=== PATIENT | female | born 1980 | race Native Hawaiian/Other Pacific Islander ===

== ENCOUNTER 2018-05-03 12:49 | Emergency (ER) | payer MEDICAID ==
[2018-05-03 13:02] VITALS: BP 150/96
[2018-05-03 13:29] LABS: Hematocrit 38.5 % (30.3-42.9); Hemoglobin 13.1 gm/dl (10.1-14.3); Mean Corpuscular HGB Conc 34 % (30-34); Mean Corpuscular Hemoglobin 32 pg (28-32); Mean Corpuscular Volume 93 fl (79-97); Platelet Count 254 K/mm3 (140-440); Red Blood Count 4.13 M/mm3 (3.65-5.03); Red Cell Distribution Width 13.4 % (13.2-15.2)
[2018-05-03 13:38] LABS: Bilirubin,Urine NEG (Negative); Blood,Urine NEG (Negative); Color,Urine Amber (Yellow); HCG Qualitative,Urine Negative (Negative); Mucus,Urine 3+ /HPF
[2018-05-03] MEDS ORDERED: DULCOLAX PR ONE (13:39)
[2018-05-03 13:46] LABS: BUN/Creatinine Ratio 13; Blood Urea Nitrogen 8 mg/dL (7-17); Calcium 9.1 mg/dL (8.4-10.2); Hemolysis Index 2
[2018-05-03] MEDS ORDERED: CITRATE OF MAGNESIA PO ONE (14:18)
--- NOTE | 2018-05-03 14:25 | XRay Report ---
ABDOMEN, 2 views: History: Abdominal pain, constipation. There is no evidence of free air beneath the diaphragms. The gas pattern within the abdomen is unremarkable. There is no evidence of bowel dilatation, significant air-fluid levels, or pathologic calcifications. Organ shadows are unremarkable. IMPRESSION: Unremarkable abdomen.
--- NOTE | 2018-05-03 14:34 | Emergency Department Report ---
ED Abdominal Pain HPI - General Chief Complaint: Abdominal Pain Stated Complaint: LOWER STOMACH PAIN Time Seen by Provider: 05/03/18 13:30 Source: patient Mode of arrival: Ambulatory Limitations: No Limitations - History of Present Illness MD Complaint: abdominal pain -: Gradual, week(s) Location: diffuse Radiation: none Severity: moderate Improves With: nothing Worsens With: nothing Associated Symptoms: constipation. denies: nausea, vomiting, diarrhea, fever, chills, dysuria, hematemesis, hematochezia, melena, hematuria, anorexia, syncope Treatments Prior to Arrival: other (no meds) - Related Data LMP (females 10-50): 1 month Previous Rx's Medication Instructions Recorded Last Taken Type PE/Shk Lvr/Mo/Pet,Wh [Preparation 28 gm MO DAILY #1 tube 05/03/18 Unknown Rx H] Polyethylene Glycol 3350 [Miralax 17 gm PO QDAY #30 packet 05/03/18 Unknown Rx 3350] Allergies Allergy/AdvReac Type Severity Reaction Status Date / Time No Known Allergies Allergy Unverified 05/03/18 13:01 ED Review of Systems ROS: Stated complaint: LOWER STOMACH PAIN Other details as noted in HPI Comment: All other systems reviewed and negative Constitutional: no symptoms reported. denies: chills, fever Eyes: denies: eye pain ENT: denies: ear pain Respiratory: no symptoms reported. denies: cough Cardiovascular: denies: chest pain Endocrine: no symptoms reported Gastrointestinal: abdominal pain, constipation. denies: nausea, vomiting, diarrhea, hematemesis, melena, hematochezia Genitourinary: denies: urgency, dysuria Musculoskeletal: denies: back pain Skin: denies: rash, lesions Neurological: denies: headache, weakness Psychiatric: denies: anxiety, depression Hematological/Lymphatic: denies: easy bleeding ED Past Medical Hx - Past Medical History Additional medical history: OBESITY - Surgical History Hx Cholecystectomy: Yes Additional Surgical History: TUBILIGATION - Family History Family history: no significant - Social History Smoking Status: Current Some Day Smoker Substance Use Type: Alcohol - Medications Home Medications: Home Medications Medication Instructions Recorded Confirmed Last Taken Type PE/Shk Lvr/Mo/Pet,Wh [Preparation 28 gm MO DAILY #1 tube 05/03/18 Unknown Rx H] Polyethylene Glycol 3350 [Miralax 17 gm PO QDAY #30 packet 05/03/18 Unknown Rx 3350] ED Physical Exam - General Limitations: No Limitations General appearance: alert, in no apparent distress - Head Head exam: Present: normocephalic - Eye Eye exam: Present: PERRL - ENT ENT exam: Present: normal exam, mucous membranes moist - Neck Neck exam: Present: normal inspection - Respiratory Respiratory exam: Present: normal lung sounds bilaterally - Cardiovascular Cardiovascular Exam: Present: regular rate - GI/Abdominal GI/Abdominal exam: Present: soft, normal bowel sounds, other (eating wo diff; no tenderness; no rebound; bm 1 w ago x small stools. no narcotics. hx of the same.). Absent: distended, tenderness, guarding, rebound, rigid, diminished bowel sounds, hyperactive bowel sounds, hypoactive bowel sounds, organomegaly, mass, bruit, pulsatile mass, hernia - Rectal Rectal exam: Present: normal rectal tone, hemorrhoids. Absent: decreased rectal tone, fecal impaction, mass, tenderness - External exam: Present: normal external exam - Extremities Exam Extremities exam: Present: normal inspection, full ROM - Back Exam Back exam: Present: normal inspection, full ROM. Absent: tenderness, CVA tenderness (R), CVA tenderness (L) - Neurological Exam Neurological exam: Present: alert, oriented X3, CN II-XII intact, normal gait - Psychiatric Psychiatric exam: Present: normal affect, normal mood - Skin Skin exam: Present: warm, dry, intact, normal color. Absent: rash ED Course Vital Signs 05/03/18 12:54 Temperature 98.2 F Pulse Rate 93 H Respiratory 18 Rate Blood Pressure 150/96 O2 Sat by Pulse 99 Oximetry ED Medical Decision Making - Lab Data Result diagrams: 05/03/18 13:16 05/03/18 13:16 - Radiology Data Radiology results: report reviewed, image reviewed - Medical Decision Making no stool in vault kub noted taking po dulc and mg citrate prep h for hemm vss no abd tenderness - Differential Diagnosis constipation; uti; hemorrhoids Critical care attestation.: If time is entered above; I have spent that time in minutes in the direct care of this critically ill patient, excluding procedure time. ED Disposition Clinical Impression: Constipation, External hemorrhoid Disposition: TO HOME OR SELFCARE Is pt being admited?: No Does the pt Need Aspirin: No Condition: Stable Instructions: Constipation (ED), High Fiber Diet (ED) Additional Instructions: high fiber diet hydrate well with water meds as ordered today follow up with pcp referral given today activity as tolerated Referrals: PRIMARY CARE, [Primary Care Provider] - 3-5 Days Time of Disposition: 14:40
[2018-05-03] MEDS ORDERED: PREPARATION H PR ONE (14:38)
== END 2018-05-03 15:26 | disposition home or self-care (01) ==
LOC: ED 12:49
DX: K59.00 Constipation, unspecified (principal); K64.4 Residual hemorrhoidal skin tags; E66.9 Obesity, unspecified; F17.200 Nicotine dependence, unspecified, uncomplicated; Z98.51 Tubal ligation status; Z90.49 Acquired absence of other specified parts of digestive tract
CPT/HCPCS: 36415; 74019; 74021; 80048; 81001; 81025; 85027; 99284